=== PATIENT | female | born 1990 | race American Indian/Alaskan Native ===

== ENCOUNTER 2019-03-13 15:53 | Emergency (ER) | payer SELFPAY ==
--- NOTE | 2019-03-13 16:06 | Emergency Department Report ---
Chief Complaint: Sickle Cell Crisis Stated Complaint: CHEST PAIN, SICKLE CELL PAIN IN LEGS - HPI History of Present Illness: Ms. Velásquez has hx of sickle cell disease. Presents with severe 10/10 pain in lower legs. - Exam Vital Signs: Vital Signs 03/13/19 16:00 Temperature 97.9 F Pulse Rate 83 Respiratory 18 Rate Blood Pressure 108/57 O2 Sat by Pulse 100 Oximetry MSE screening note: Focused history and physical exam performed. Due to findings the following was ordered: ED Disposition for MSE Condition: Stable
[2019-03-13 16:28] LABS: Basophils % (Auto) 0.7 % (0.0-1.8); Eosinophils # (Auto) 0.1 K/mm3 (0.0-0.4); Hematocrit 38.2 % (30.3-42.9); Hemoglobin 12.9 gm/dl (10.1-14.3); Lymphocytes # (Auto) 2.8 K/mm3 (1.2-5.4); Lymphocytes % (Auto) 43.6 % (13.4-35.0); Mean Corpuscular HGB Conc 34 % (30-34); Mean Corpuscular Volume 90 fl (79-97); Monocytes # (Auto) 0.5 K/mm3 (0.0-0.8); Monocytes % (Auto) 8.6 % (0.0-7.3); Platelet Count 216 K/mm3 (140-440); Red Blood Count 4.26 M/mm3 (3.65-5.03); Red Cell Distribution Width 13.9 % (13.2-15.2)
[2019-03-13 16:47] LABS: Alanine Aminotransferase 11 units/L (7-56); Albumin 4.3 g/dL (3.9-5); BUN/Creatinine Ratio 17; Blood Urea Nitrogen 12 mg/dL (7-17); Calcium 9.3 mg/dL (8.4-10.2); Hemolysis Index 13
[2019-03-13] MEDS ORDERED: MORPHINE 2 MG/1 ML INJ IV ONE ×2 (21:02→21:53)
[2019-03-13] MEDS ORDERED: SODIUM CHLORIDE 0.9% 1000 ML 1,000 ML IV ONE (21:02)
[2019-03-13] MEDS ORDERED: diphenhydrAMINE 50 MG/ML VIAL IV ONE (21:02)
--- NOTE | 2019-03-13 21:05 | Emergency Department Report ---
ED General Adult HPI - General Chief complaint: Sickle Cell Crisis Stated complaint: CHEST PAIN, SICKLE CELL PAIN IN LEGS Time Seen by Provider: 03/13/19 20:56 Source: patient Mode of arrival: Ambulatory Limitations: No Limitations - History of Present Illness Initial comments: Patient is a 28 -year-old female that presents emergency room complaints of sickle cell crisis and leg pain. Patient states her leg pain is a 10 out of 10. Patient states that her pain is better with rest and worse with exertion. Patient denies other complaints. Patient denies headache. Patient denies neck pain. Patient denies fever chills. Patient denies abdominal pain. Patient denies chest pain and shortness of breath. -: Sudden Location: lower extremity Radiation: non-radiation Severity scale (0 -10): 10 Quality: stabbing Consistency: constant Improves with: rest Worsens with: movement Associated Symptoms: denies other symptoms. denies: confusion, chest pain, cough, diaphoresis, fever/chills, headaches, loss of appetite, malaise, nausea/vomiting, rash, seizure, shortness of breath, syncope, weakness Treatments Prior to Arrival: none - Related Data Previous Rx's Medication Instructions Recorded Last Taken Type oxyCODONE /ACETAMINOPHEN [Percocet 1 tab PO Q4HR PRN #10 tab 03/13/19 Unknown Rx 325] Allergies Allergy/AdvReac Type Severity Reaction Status Date / Time hydromorphone HCl AdvReac Rash Verified 03/11/16 07:39 [From Dilaudid] ED Review of Systems ROS: Stated complaint: CHEST PAIN, SICKLE CELL PAIN IN LEGS Other details as noted in HPI Constitutional: denies: chills, fever Eyes: denies: eye pain, eye discharge, vision change ENT: denies: ear pain, throat pain Respiratory: denies: cough, shortness of breath, wheezing Cardiovascular: denies: chest pain, palpitations Endocrine: no symptoms reported Gastrointestinal: denies: abdominal pain, nausea, diarrhea Genitourinary: denies: urgency, dysuria, discharge Musculoskeletal: denies: back pain, joint swelling, arthralgia Skin: denies: rash, lesions Neurological: denies: headache, weakness, paresthesias Psychiatric: denies: anxiety, depression Hematological/Lymphatic: denies: easy bleeding, easy bruising ED Past Medical Hx - Past Medical History Previous Medical History?: Yes Hx Hypertension: No Hx CVA: No Hx Heart Attack/AMI: No Hx Congestive Heart Failure: No Hx Diabetes: No Hx Deep Vein Thrombosis: No Hx Pulmonary Embolism: No Hx GERD: No Hx Liver Disease: No Hx Renal Disease: No Hx Sickle Cell Disease: Yes Hx Arthritis: No Hx Headaches / Migraines: Yes (OTC meds) Hx Seizures: No Hx Kidney Stones: No Hx Psychiatric Treatment: No Hx Asthma: No Hx COPD: No Hx Tuberculosis: No Hx Dementia: No Hx HIV: No - Surgical History Past Surgical History?: Yes Hx Coronary Stent: No Hx Open Heart Surgery: No Hx Pacemaker: No Hx Internal Defibrillator: No Hx Cholecystectomy: No Hx Appendectomy: No Hx Breast Surgery: No - Family History Family history: no significant - Social History Smoking Status: Never Smoker Substance Use Type: Marijuana - Medications Home Medications: Home Medications Medication Instructions Recorded Confirmed Last Taken Type oxyCODONE /ACETAMINOPHEN [Percocet 1 tab PO Q4HR PRN #10 tab 03/13/19 Unknown Rx 325] ED Physical Exam - General Limitations: No Limitations General appearance: alert, in no apparent distress - Head Head exam: Present: atraumatic, normocephalic - Eye Eye exam: Present: normal appearance - ENT ENT exam: Present: mucous membranes moist - Neck Neck exam: Present: normal inspection - Respiratory Respiratory exam: Present: normal lung sounds bilaterally. Absent: respiratory distress, wheezes, rales - Cardiovascular Cardiovascular Exam: Present: regular rate, normal rhythm. Absent: systolic murmur, diastolic murmur, rubs, gallop - GI/Abdominal GI/Abdominal exam: Present: soft, normal bowel sounds. Absent: distended, tenderness, guarding - Rectal Rectal exam: Present: deferred - Extremities Exam Extremities exam: Present: normal inspection, full ROM, normal capillary refill. Absent: tenderness, pedal edema, joint swelling, calf tenderness - Back Exam Back exam: Present: normal inspection, full ROM. Absent: tenderness, CVA tenderness (R), CVA tenderness (L), muscle spasm, paraspinal tenderness, vertebral tenderness - Neurological Exam Neurological exam: Present: alert, oriented X3 - Psychiatric Psychiatric exam: Present: normal affect, normal mood - Skin Skin exam: Present: warm, dry, intact, normal color. Absent: rash ED Course Vital Signs 03/13/19 03/13/19 16:00 21:00 Temperature 97.9 F 98.3 F Pulse Rate 83 77 Respiratory 18 17 Rate Blood Pressure 108/57 Blood Pressure 143/76 [Left] O2 Sat by Pulse 100 100 Oximetry - Reevaluation(s) Reevaluation #1: I discussed all results with patient. I discussed plan of care outpatient. Patient will be discharged all. Patient is stable for discharge. Patient given discharge instructions. Patient voiced understanding of discharge instructions. 03/13/19 22:06 ED Medical Decision Making - Lab Data Result diagrams: 03/13/19 16:10 03/13/19 16:10 - Medical Decision Making Patient is a 28-year-old female that presents emergency room with complaints of to go so crisis and leg pain. Patient's reticulocyte count is 1 and is within normal limits. Patient is clinical findings are not consistent with sickle cell crisis. Patient will be discharged home. Patient given fluids, morphine and anti-inflammatory. Patient responded well to treatment. Patient will be d ischarged home. Patient will need to follow up with her printer assistant and a primary care. - Differential Diagnosis sickle-cell crisis, leg pain, leg strain. Critical care attestation.: If time is entered above; I have spent that time in minutes in the direct care of this critically ill patient, excluding procedure time. ED Disposition Clinical Impression: Leg strain Leg pain Qualifiers: Laterality: bilateral Qualified Code(s): M79.604 - Pain in right leg Disposition: -01 TO HOME OR SELFCARE Is pt being admited?: No Does the pt Need Aspirin: No Condition: Stable Instructions: Knee Pain (ED) Additional Instructions: Patient to follow up with primary care in 2-3 days. Patient to follow up with printer assistant in 2-3 days. Patient to return to ER if condition worsens or new symptoms arise or symptoms change. Patient to increase water. Patient to rest. Patient to take Tylenol or ibuprofen when necessary for pain. Prescriptions: oxyCODONE /ACETAMINOPHEN [Percocet 5/325] 1 tab PO Q4HR PRN #10 tab PRN Reason: Pain , Severe (7-10) Referrals: SHELLY BLAIR MD [Primary Care Provider] - 2-3 Days Time of Disposition: 22:48
[2019-03-13] MEDS ORDERED: KETOROLAC 30 MG/1 ML INJ IV ONE (21:53)
[2019-03-13 23:31] VITALS: BP 121/96
== END 2019-03-13 23:00 | disposition home or self-care (01) ==
LOC: ED 15:53
DX: S86.911A Strain of unspecified muscle(s) and tendon(s) at lower leg level, right leg, initial encounter (principal); G43.909 Migraine, unspecified, not intractable, without status migrainosus; F12.10 Cannabis abuse, uncomplicated; Z79.899 Other long term (current) drug therapy; Z88.8 Allergy status to other drugs, medicaments and biological substances; X58.XXXA Exposure to other specified factors, initial encounter; Y93.89 Activity, other specified; Y92.89 Other specified places as the place of occurrence of the external cause; Y99.8 Other external cause status
CPT/HCPCS: 36415; 80053; 84703; 85025; 85045; 96374; 96375; 96376; 99283; J1200; J1885; J2270; J7030

== ENCOUNTER 2019-03-27 10:15 | Emergency (ER) | payer MEDICAID ==
[2019-03-27] MEDS ORDERED: ACETAMINOPHEN 500 MG TAB PO ONE (10:48)
[2019-03-27] MEDS ORDERED: SODIUM CHLORIDE 0.9% 1000 ML 1,000 ML IV ONE (10:48)
--- NOTE | 2019-03-27 10:49 | Emergency Department Report ---
ED General Adult HPI - General Chief complaint: Sickle Cell Crisis Stated complaint: SSC/PAIN Time Seen by Provider: 03/27/19 10:48 Source: patient Mode of arrival: Ambulatory Limitations: No Limitations - History of Present Illness Initial comments: Patient is a 28-year-old -[place] female who comes to the ER today complaining of left arm and leg pain. She also complains of a headache. She states that she is currently on her period. She has a past medical history of sickle cell disease and migraine headaches. Patient reports taking Motrin, Percocet and Lortab at home. She is on no sickle-cell medications. She states this is because she does not tolerate them. 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 She is supposed to see somebody at [facility] at the end of the month. - Related Data Allergies Allergy/AdvReac Type Severity Reaction Status Date / Time hydromorphone HCl AdvReac Rash Verified 03/11/16 07:39 [From Dilaudid] ED Review of Systems ROS: Stated complaint: SSC/PAIN Other details as noted in HPI Comment: All other systems reviewed and negative ED Past Medical Hx - Past Medical History Previous Medical History?: Yes Hx Hypertension: No Hx CVA: No Hx Heart Attack/AMI: No Hx Congestive Heart Failure: No Hx Diabetes: No Hx Deep Vein Thrombosis: No Hx Pulmonary Embolism: No Hx GERD: No Hx Liver Disease: No Hx Renal Disease: No Hx Sickle Cell Disease: Yes Hx Arthritis: No Hx Headaches / Migraines: Yes (OTC meds) Hx Seizures: No Hx Kidney Stones: No Hx Psychiatric Treatment: No Hx Asthma: No Hx COPD: No Hx Tuberculosis: No Hx Dementia: No Hx HIV: No - Surgical History Past Surgical History?: No Hx Coronary Stent: No Hx Open Heart Surgery: No Hx Pacemaker: No Hx Internal Defibrillator: No Hx Cholecystectomy: No Hx Appendectomy: No Hx Breast Surgery: No - Family History Family history: no significant - Social History Smoking Status: Never Smoker Substance Use Type: None ED Physical Exam - General Limitations: No Limitations General appearance: alert, in no apparent distress - Head Head exam: Present: atraumatic, normocephalic - Eye Eye exam: Present: normal appearance - ENT ENT exam: Present: mucous membranes moist - Neck Neck exam: Present: normal inspection - Respiratory Respiratory exam: Present: normal lung sounds bilaterally. Absent: respiratory distress - Cardiovascular Cardiovascular Exam: Present: regular rate, normal rhythm. Absent: systolic murmur, diastolic murmur, rubs, gallop - GI/Abdominal GI/Abdominal exam: Present: soft, normal bowel sounds - Extremities Exam Extremities exam: Present: normal inspection - Back Exam Back exam: Present: normal inspection - Neurological Exam Neurological exam: Present: alert, oriented X3 - Psychiatric Psychiatric exam: Present: normal affect, normal mood - Skin Skin exam: Present: warm, dry, intact, normal color. Absent: rash ED Course Vital Signs 03/27/19 10:18 Temperature 98.5 F Pulse Rate 105 H Respiratory 16 Rate Blood Pressure 127/86 O2 Sat by Pulse 99 Oximetry ED Medical Decision Making - Lab Data Result diagrams: 03/27/19 10:49 03/27/19 10:49 - Medical Decision Making Lab Results 03/27/19 03/27/19 03/27/19 Range/Units 10:49 10:49 10:49 WBC 4.4 L (4.5-11.0) K/mm3 RBC 4.00 (3.65-5.03) M/mm3 Hgb 12.3 (10.1-14.3) gm/dl Hct 35.9 (30.3-42.9) % MCV 90 (79-97) fl MCH 31 (28-32) pg MCHC 34 (30-34) % RDW 13.7 (13.2-15.2) % Plt Count 232 (140-440) K/mm3 Lymph % (Auto) 49.6 H (13.4-35.0) % Leon % (Auto) 7.5 H (0.0-7.3) % Eos % (Auto) 1.3 (0.0-4.3) % Baso % (Auto) 0.7 (0.0-1.8) % Lymph # 2.2 (1.2-5.4) K/mm3 Leon # 0.3 (0.0-0.8) K/mm3 Eos # 0.1 (0.0-0.4) K/mm3 Baso # 0.0 (0.0-0.1) K/mm3 Seg Neutrophils % 40.9 (40.0-70.0) % Seg Neutrophils # 1.8 (1.8-7.7) K/mm3 Percent Retic 1.90 (0.78-2.58) % Sodium 138 (137-145) mmol/L Potassium 4.0 (3.6-5.0) mmol/L Chloride 104.8 (98-107) mmol/L Carbon Dioxide 21 L (22-30) mmol/L Anion Gap 16 mmol/L BUN 8 (7-17) mg/dL Creatinine 0.7 (0.7-1.2) mg/dL Estimated GFR > 60 ml/min BUN/Creatinine Ratio 11 % Glucose 74 (65-100) mg/dL Calcium 8.5 (8.4-10.2) mg/dL HCG, Qual Negative (Negative) Vital Signs 03/27/19 10:18 Temperature 98.5 F Pulse Rate 105 H Respiratory 16 Rate Blood Pressure 127/86 O2 Sat by Pulse 99 Oximetry LABS NOTED RETIC NORMAL NS/DECADRON/MORPHINE/MOTRIN/TORADOL FOR PAIN PT EDUCATED ON NEEDING TO TREAT HER DISEASE AND NOT JUST THE PAIN - SHE HAS APPNT AT [facility] SCHEDULED 1320 DC HOME WITH DC PLAN OF CARE AND FOLLOW UP. SHE HAS LORTAB AND OXY AT HOME FOR PAIN. - Differential Diagnosis [facility] Critical care attestation.: If time is entered above; I have spent that time in minutes in the direct care of this critically ill patient, excluding procedure time. ED Disposition Clinical Impression: Pain, History of sickle cell disease Disposition: DC-01 TO HOME OR SELFCARE Is pt being admited?: No Does the pt Need Aspirin: No Condition: Stable Instructions: Sickle Cell Crisis (ED) Additional Instructions: FOLLOW UP WITH MD AT [facility] SCHEDULED FOR TREATMENT OF SCD CONTINUE HOME OXY/LORTAB AND MOTRIN STAY WELL HYDRATED WITH WATER PCP REFERRAL GIVEN BELOW Referrals: IAIN CASTELLANOS MD [Staff Physician] - 3-5 Days Time of Disposition: 12:40
[2019-03-27 11:13] LABS: Basophils % (Auto) 0.7 % (0.0-1.8); Eosinophils # (Auto) 0.1 K/mm3 (0.0-0.4); Eosinophils % (Auto) 1.3 % (0.0-4.3); Hematocrit 35.9 % (30.3-42.9); Hemoglobin 12.3 gm/dl (10.1-14.3); Lymphocytes # (Auto) 2.2 K/mm3 (1.2-5.4); Lymphocytes % (Auto) 49.6 % (13.4-35.0); Mean Corpuscular HGB Conc 34 % (30-34); Mean Corpuscular Volume 90 fl (79-97); Monocytes # (Auto) 0.3 K/mm3 (0.0-0.8); Monocytes % (Auto) 7.5 % (0.0-7.3); Platelet Count 232 K/mm3 (140-440); Red Cell Distribution Width 13.7 % (13.2-15.2)
[2019-03-27] MEDS ORDERED: KETOROLAC 30 MG/1 ML INJ IV ONE (11:20)
[2019-03-27] MEDS ORDERED: dexAMETHasone 4 MG/ML VIAL IV ONE (11:20)
[2019-03-27 11:33] LABS: BUN/Creatinine Ratio 11; Blood Urea Nitrogen 8 mg/dL (7-17); Calcium 8.5 mg/dL (8.4-10.2); Hemolysis Index 9
[2019-03-27] MEDS ORDERED: ONDANSETRON 4 MG/2 ML INJ IV ONE (12:02)
[2019-03-27] MEDS ORDERED: MORPHINE 4 MG/1 ML INJ IV ONE (12:02)
[2019-03-27 17:33] VITALS: BP 120/85
== END 2019-03-27 13:08 | disposition home or self-care (01) ==
LOC: ED 10:15
DX: D57.00 Hb-SS disease with crisis, unspecified (principal); M79.602 Pain in left arm; M79.605 Pain in left leg; G43.909 Migraine, unspecified, not intractable, without status migrainosus; Z88.8 Allergy status to other drugs, medicaments and biological substances
CPT/HCPCS: 36415; 80048; 84703; 85025; 85045; 96374; 96375; 99283; J1100; J1885; J2270; J2405; J7030